=== PATIENT | female | born 1940 | race Caucasian/White ===

== ENCOUNTER 2017-10-12 22:03 | Inpatient (IN) ==
[2017-10-12] MEDS ORDERED: ASPIRIN 300 MG SUPP RECTAL STA (23:53)
[2017-10-12] MEDS ORDERED: cefTRIAXone 1,000 MG in SODIUM CHLORIDE 0.9% 100 ML IV STA (23:53)
[2017-10-12] MEDS ORDERED: ENOXAPARIN 100 MG/ML SYRINGE SUBCUT STA (23:53)
[2017-10-12] MEDS ORDERED: cefTRIAXone 1,000 MG VIAL ONE (23:58)
[2017-10-12] MEDS ORDERED: ASPIRIN 300 MG SUPP RECTAL ONE (23:59)
[2017-10-12] MEDS ORDERED: ENOXAPARIN 30 MG/0.3 ML SYRINGE ONE (23:59)
[2017-10-13] MEDS ORDERED: ACETAMINOPHEN 325 MG TABLET PO PRN (01:17)
[2017-10-13] MEDS ORDERED: ONDANSETRON 4 MG/2 ML VIAL IV PRN (01:17)
[2017-10-13] MEDS ORDERED: NITROGLYCERIN DRIP 50 MG/250 ML BOTTLE IV SCH (01:30)
[2017-10-13] MEDS ORDERED: HEPARIN DRIP 25,000 UNITS/500 ML PREMIX IV SCH (01:30)
[2017-10-13] MEDS ORDERED: cefTRIAXone 1,000 MG VIAL ONE (01:40)
[2017-10-13] MEDS ORDERED: AZITHROMYCIN 500 MG VIAL IV ONE (01:40)
[2017-10-13] MEDS: METOPROLOL TARTRATE 25 MG TABLET PO SCH ×4 (01:57→21:55)
[2017-10-13] MEDS ORDERED: AZITHROMYCIN INJ 500 MG in SODIUM CHLORIDE 0.9% 250 ML IV SCH (03:00)
[2017-10-13 05:43] LABS: Basophils # 0.1 10*3/uL (0.0-0.2); Basophils % 0.7 % (0.0-0.8); Eosinophils % 0.2 % (0.00-10.9); Hematocrit 35.9 VOL% (35.7-47.0); Hemoglobin 11.6 GM/DL (12.0-16.0); Immature Granulocytes % 0.5 %; Immature Granulocytes Absolute 0.04 #; Lymphocytes # 1.7 10*3/uL (1.4-4.0); Lymphocytes % 19.2 % (21.3-54.2); Mean Corpuscular HGB Conc 32.3 GM/DL (32-36); Mean Corpuscular Hemoglobin 29 PG (27-34); Mean Corpuscular Volume 89.5 FL (87-102); Mean Platelet Volume 10.9 FL (9.6-12.0); Monocytes # 0.4 10*3/uL (0.11-0.8); Monocytes % 4.8 % (1.7-12.7); Neutrophils # 6.6 10*3/uL (1.4-7.4); Neutrophils % 74.6 % (38.7-73.9); Platelet Count 322 T/CUMM (130-400); Red Blood Count 4.01 MC/CUMM (3.8-5.5); Red Cell Distribution Width 12.7 % (9.3-17.3); White Blood Count 8.8 T/CUMM (4-12)
[2017-10-13 06:35] LABS: Alanine Aminotransferase 13 U/L (13-56); Albumin 1.9 G/DL (3.4-5.0); Alkaline Phosphatase 86 U/L (45-117); Aspartate Amino Transferase 33 U/L (0-37); Bilirubin,Total < 0.39 MG/DL (0.2-1.0); Blood Urea Nitrogen 25 MG/DL (7-18); Calcium 8.1 MG/DL (8.5-10.1); Glucose 73 MG/DL (74-106); Osmolality,Calculated 275.8 MOS/KG (273-304); Potassium 3.2 MMOL/L (3.5-5.1); Sodium 137 MMOL/L (136-145); Total Protein 5.6 G/DL (6.4-8.3)
[2017-10-13] MEDS ORDERED: NIFEdipine 10 MG CAPSULE PO PRN (07:59)
[2017-10-13] MEDS: PANTOPRAZOLE 40 MG TABLET PO SCH (08:29)
[2017-10-13] MEDS: ASPIRIN EC 81 MG TABLET PO SCH (08:29)
[2017-10-13] MEDS: POTASSIUM CHLORIDE 20 MEQ TABLET PO SCH ×3 (08:29→18:30)
[2017-10-13] MEDS ORDERED: LISINOPRIL 10 MG TABLET PO SCH (09:00)
[2017-10-13] MEDS: CIPROFLOXACIN 250 MG TABLET PO SCH ×2 (14:05→21:53)
[2017-10-14] MEDS: cefTRIAXone 1,000 MG in SYRINGE 1 EACH IV SCH ×2 (02:03→14:34)
[2017-10-14 04:37] LABS: Basophils # 0.1 10*3/uL (0.0-0.2); Basophils % 0.5 % (0.0-0.8); Eosinophils % 0.3 % (0.00-10.9); Hematocrit 37.3 VOL% (35.7-47.0); Hemoglobin 12.5 GM/DL (12.0-16.0); Immature Granulocytes % 0.4 %; Immature Granulocytes Absolute 0.05 #; Lymphocytes # 1.9 10*3/uL (1.4-4.0); Lymphocytes % 16.4 % (21.3-54.2); Mean Corpuscular HGB Conc 33.5 GM/DL (32-36); Mean Corpuscular Hemoglobin 30 PG (27-34); Mean Corpuscular Volume 88.6 FL (87-102); Mean Platelet Volume 11.2 FL (9.6-12.0); Monocytes # 0.7 10*3/uL (0.11-0.8); Monocytes % 5.8 % (1.7-12.7); Neutrophils # 8.9 10*3/uL (1.4-7.4); Neutrophils % 76.6 % (38.7-73.9); Platelet Count 326 T/CUMM (130-400); Red Blood Count 4.21 MC/CUMM (3.8-5.5); Red Cell Distribution Width 13.2 % (9.3-17.3); White Blood Count 11.6 T/CUMM (4-12)
[2017-10-14 05:11] LABS: Calcium 8.3 MG/DL (8.5-10.1); Magnesium 2.2 MG/DL (1.8-2.4); Osmolality,Calculated 287.5 MOS/KG (273-304); Potassium 4.8 MMOL/L (3.5-5.1)
[2017-10-14] MEDS: ASPIRIN EC 81 MG TABLET PO SCH (10:25)
[2017-10-14] MEDS: CIPROFLOXACIN 250 MG TABLET PO SCH ×2 (10:25→20:41)
[2017-10-14] MEDS: METOPROLOL TARTRATE 25 MG TABLET PO SCH ×2 (10:26→20:41)
[2017-10-14] MEDS: PANTOPRAZOLE 40 MG TABLET PO SCH (10:26)
[2017-10-14] MEDS: LISINOPRIL 2.5 MG TABLET PO SCH (10:28)
[2017-10-14] MEDS: SODIUM CHLORIDE 0.9% 1,000 ML IV SCH (16:36)
[2017-10-15] MEDS: cefTRIAXone 1,000 MG in SYRINGE 1 EACH IV SCH ×2 (02:58→13:39)
[2017-10-15 07:25] LABS: Osmolality,Calculated 294.1 MOS/KG (273-304); Potassium 4.6 MMOL/L (3.5-5.1)
[2017-10-15] MEDS: METOPROLOL TARTRATE 25 MG TABLET PO SCH ×2 (08:15→20:32)
[2017-10-15] MEDS: LISINOPRIL 2.5 MG TABLET PO SCH (08:15)
[2017-10-15] MEDS: ASPIRIN EC 81 MG TABLET PO SCH (08:15)
[2017-10-15] MEDS: PANTOPRAZOLE 40 MG TABLET PO SCH (08:15)
[2017-10-15] MEDS: CIPROFLOXACIN 250 MG TABLET PO SCH ×2 (08:15→20:32)
[2017-10-15] MEDS: SODIUM CHLORIDE 0.9% 1,000 ML IV SCH ×3 (12:15→16:11)
[2017-10-15] MEDS ORDERED: ZINC OXIDE PASTE 113 GM TUBE TOP PRN (16:12)
[2017-10-16] MEDS: cefTRIAXone 1,000 MG in SYRINGE 1 EACH IV SCH ×2 (02:06→13:05)
[2017-10-16] MEDS: SODIUM CHLORIDE 0.9% 1,000 ML IV SCH ×2 (05:16→18:50)
[2017-10-16 05:34] LABS: Basophils # 0.1 10*3/uL (0.0-0.2); Basophils % 0.7 % (0.0-0.8); Eosinophils # 0.1 10*3/uL (0.0-0.87); Eosinophils % 1.1 % (0.00-10.9); Hematocrit 35.7 VOL% (35.7-47.0); Hemoglobin 11.3 GM/DL (12.0-16.0); Immature Granulocytes % 0.8 %; Immature Granulocytes Absolute 0.08 #; Lymphocytes # 1.7 10*3/uL (1.4-4.0); Mean Corpuscular HGB Conc 31.7 GM/DL (32-36); Mean Corpuscular Hemoglobin 30 PG (27-34); Mean Corpuscular Volume 93.9 FL (87-102); Mean Platelet Volume 11.4 FL (9.6-12.0); Monocytes # 0.7 10*3/uL (0.11-0.8); Monocytes % 7.3 % (1.7-12.7); Neutrophils # 7.2 10*3/uL (1.4-7.4); Neutrophils % 73.1 % (38.7-73.9); Platelet Count 287 T/CUMM (130-400); Red Cell Distribution Width 13.6 % (9.3-17.3); White Blood Count 9.9 T/CUMM (4-12)
[2017-10-16 06:05] LABS: Calcium 7.8 MG/DL (8.5-10.1); Potassium 4.4 MMOL/L (3.5-5.1)
[2017-10-16] MEDS: LEVOTHYROXINE 50 MCG TABLET PO SCH (06:53)
[2017-10-16] MEDS ORDERED: TUBERCULIN SKIN TEST 0.1 ML SYRINGE INTRADERM ONE (08:27)
[2017-10-16] MEDS: LISINOPRIL 2.5 MG TABLET PO SCH (08:47)
[2017-10-16] MEDS: ASPIRIN EC 81 MG TABLET PO SCH (08:47)
[2017-10-16] MEDS: PANTOPRAZOLE 40 MG TABLET PO SCH (08:47)
[2017-10-16] MEDS: CIPROFLOXACIN 250 MG TABLET PO SCH ×2 (08:47→20:41)
[2017-10-16] MEDS: METOPROLOL TARTRATE 25 MG TABLET PO SCH ×2 (08:47→20:41)
[2017-10-16] MEDS: MEGESTROL 40 MG TABLET PO SCH (20:40)
[2017-10-17] MEDS: cefTRIAXone 1,000 MG in SYRINGE 1 EACH IV SCH ×2 (00:53→12:41)
[2017-10-17] MEDS: LEVOTHYROXINE 50 MCG TABLET PO SCH (05:48)
[2017-10-17] MEDS: ASPIRIN EC 81 MG TABLET PO SCH (08:05)
[2017-10-17] MEDS: MEGESTROL 40 MG TABLET PO SCH (08:05)
[2017-10-17] MEDS: METOPROLOL TARTRATE 25 MG TABLET PO SCH (08:05)
[2017-10-17] MEDS: LISINOPRIL 2.5 MG TABLET PO SCH (08:05)
[2017-10-17] MEDS: PANTOPRAZOLE 40 MG TABLET PO SCH (08:05)
[2017-10-17] MEDS: CIPROFLOXACIN 250 MG TABLET PO SCH (08:06)
[2017-10-17] MEDS: SODIUM CHLORIDE 0.9% 1,000 ML IV SCH (08:08)
[2017-10-17 12:13] VITALS: BP 133/63
== END 2017-10-17 13:39 | disposition swing bed (61) | DRG 193 ==
LOC: N.ED 22:03 → SUATTDRO 10-13 01:17 → N.EDINP 10-13 01:17 → N.CC 10-13 01:41 → N.TELEN 10-13 11:38 → N.5E 10-14 23:16
PROVIDERS: ADMIT Internal Medicine; ATTEND Internal Medicine

== ENCOUNTER 2017-10-31 09:09 | Inpatient (IN) ==
[2017-10-31] MEDS ORDERED: ALBUTEROL/IPRATROPIUM 3 ML NEB RESP TX STA (10:05)
[2017-10-31 10:47] LABS: Basophils % 0.5 % (0.0-0.8); Hematocrit 34.7 VOL% (35.7-47.0); Hemoglobin 11.5 GM/DL (12.0-16.0); Immature Granulocytes % 0.8 %; Immature Granulocytes Absolute 0.06 #; Lymphocytes # 0.4 10*3/uL (1.4-4.0); Lymphocytes % 4.5 % (21.3-54.2); Mean Corpuscular HGB Conc 33.1 GM/DL (32-36); Mean Corpuscular Hemoglobin 30 PG (27-34); Mean Corpuscular Volume 89.7 FL (87-102); Mean Platelet Volume 10.4 FL (9.6-12.0); Monocytes % 0.5 % (1.7-12.7); Neutrophils # 7.5 10*3/uL (1.4-7.4); Neutrophils % 93.7 % (38.7-73.9); Platelet Count 468 T/CUMM (130-400); Red Blood Count 3.87 MC/CUMM (3.8-5.5); Red Cell Distribution Width 13.9 % (9.3-17.3)
[2017-10-31 10:57] LABS: Alanine Aminotransferase 105 U/L (13-56); Albumin 2.1 G/DL (3.4-5.0); Alkaline Phosphatase 76 U/L (45-117); Aspartate Amino Transferase 63 U/L (0-37); Bilirubin,Total < 0.39 MG/DL (0.2-1.0); Blood Urea Nitrogen 26 MG/DL (7-18); Calcium 8.6 MG/DL (8.5-10.1); Glucose 111 MG/DL (74-106); Osmolality,Calculated 291.8 MOS/KG (273-304); Potassium 4.1 MMOL/L (3.5-5.1); Sodium 144 MMOL/L (136-145); Total Protein 6.2 G/DL (6.4-8.3)
[2017-10-31 11:09] LABS: Band Neutrophils 1 % (0-10); Hypochromasia 1+; Lymphocytes 3 % (20-55); Microcytosis Slight; Segmented Neutrophils 95 % (50-85); Total Cells Counted 100
[2017-10-31 11:10] LABS: Platelet Estimate Increased
[2017-10-31] MEDS ORDERED: LEVOFLOXACIN INJ 750 MG in PREMIX 1 EACH IV SCH (13:30)
[2017-10-31 13:31] LABS: PT Patient Result 10.2 SECS
[2017-10-31] MEDS ORDERED: LEVOFLOXACIN INJ 150 ML IV ONE (13:57)
[2017-10-31] MEDS ORDERED: ACETAMINOPHEN 325 MG TABLET PO PRN (14:10)
[2017-10-31] MEDS ORDERED: ONDANSETRON 4 MG/2 ML VIAL IV PRN (14:10)
[2017-10-31] MEDS ORDERED: NICOTINE 21 MG/24 HR PATCH TRANSDERM PRN (14:10)
[2017-10-31] MEDS: FUROSEMIDE 20 MG/2 ML VIAL IV SCH ×2 (15:14→20:42)
[2017-10-31] MEDS: ENOXAPARIN 30 MG/0.3 ML SYRINGE SUBCUT SCH (15:14)
[2017-10-31] MEDS: methylPREDNISolone SOD SUC 40 MG/1 ML VIAL IV SCH (15:15)
[2017-10-31 15:44] LABS: ABG Base Excess 6.3 MMOL/L (-2.5-2.5); ABG Oxygen Saturation 95.1 % (95-100); ABG PCO2 39.8 MM HG (35-48); ABG PH 7.487 (7.35-7.45); ABG PO2 70.2 MM HG (80-95); ABG TCO2 27.1 MMOL/L (23-27); Allen Test Positive
[2017-10-31 15:47] LABS: Apearance,Urine CLEAR (Clear); Bilirubin,Urine Negative (Negative); Blood, Urine Negative (Negative); Glucose,Urine (UA) Negative (Negative); Ketones,Urine 5 mg/dL (Negative); Nitrite,Urine Negative (Negative); Protein,Urine >=500 MG/DL; RBC,Urine <1 /HPF (0-4); Squamous Epithelial Cell,Urine Occasional /HPF (0-10); Urine Color Yellow (Yellow); Urine Specific Gravity 1.018 (1.001-1.035); Urine Urobilinogen < 2.0 EU/DL (0.2-1.0); WBC,Urine 2 /HPF (0-6)
[2017-10-31] MEDS ORDERED: diphenhydrAMINE 50 MG/1 ML VIAL ONE (15:52)
[2017-10-31] MEDS ORDERED: diphenhydrAMINE 50 MG/1 ML VIAL IV ONE (15:57)
[2017-10-31] MEDS ORDERED: diphenhydrAMINE 50 MG/1 ML VIAL IV SCH (18:00)
[2017-10-31] MEDS ORDERED: ALBUTEROL 0.63 MG/3 ML NEB RESP TX PRN (19:00)
[2017-10-31] MEDS: MEROPENEM 500 MG in SODIUM CHLORIDE 0.9% 100 ML IV SCH (20:42)
[2017-10-31 21:05] LABS: Ammonia < 10 UMOL/L (11-32)
[2017-10-31 21:10] LABS: Troponin I Only 0.182 NG/ML (0.00-0.045)
[2017-10-31 21:52] LABS: Hepatitis A Ab IgM Quant 0.18 Index; Hepatitis A Ab IgM Result Negative (Negative); Hepatitis B Core IgM Quant 0.16 Index; Hepatitis B Core IgM Result Negative (Negative); Hepatitis B Surface Ag Quant < 0.10 Index; Hepatitis B Surface Ag Result Negative (Negative); Hepatitis C Virus Ab Quant 0.13 Index; Hepatitis C Virus Ab Result Negative (Negative)
[2017-11-01] MEDS: methylPREDNISolone SOD SUC 40 MG/1 ML VIAL IV SCH ×2 (02:59→14:53)
[2017-11-01 05:33] LABS: Basophils % 0.1 % (0.0-0.8); Hematocrit 33.1 VOL% (35.7-47.0); Hemoglobin 10.6 GM/DL (12.0-16.0); Immature Granulocytes % 0.5 %; Immature Granulocytes Absolute 0.04 #; Lymphocytes # 0.7 10*3/uL (1.4-4.0); Lymphocytes % 9.2 % (21.3-54.2); Mean Corpuscular Hemoglobin 29 PG (27-34); Mean Corpuscular Volume 89.9 FL (87-102); Mean Platelet Volume 10.7 FL (9.6-12.0); Monocytes # 0.4 10*3/uL (0.11-0.8); Monocytes % 5.2 % (1.7-12.7); Neutrophils # 6.8 10*3/uL (1.4-7.4); Platelet Count 475 T/CUMM (130-400); Red Blood Count 3.68 MC/CUMM (3.8-5.5); White Blood Count 7.9 T/CUMM (4-12)
[2017-11-01 06:10] LABS: Alanine Aminotransferase 96 U/L (13-56); Albumin 2.2 G/DL (3.4-5.0); Alkaline Phosphatase 71 U/L (45-117); Aspartate Amino Transferase 44 U/L (0-37); Bilirubin,Total < 0.39 MG/DL (0.2-1.0); Blood Urea Nitrogen 29 MG/DL (7-18); Calcium 8.6 MG/DL (8.5-10.1); Glucose 100 MG/DL (74-106); Osmolality,Calculated 288.1 MOS/KG (273-304); Potassium 4.5 MMOL/L (3.5-5.1); Sodium 142 MMOL/L (136-145)
[2017-11-01 06:13] LABS: Calcium 8.9 MG/DL (8.5-10.1); Osmolality,Calculated 288.1 MOS/KG (273-304); Potassium 4.5 MMOL/L (3.5-5.1); Thyroid Stimulating Hormone 2.26 uIU/ml (0.358-3.74)
[2017-11-01] MEDS: PANTOPRAZOLE 40 MG TABLET PO SCH (07:59)
[2017-11-01] MEDS: MEROPENEM 500 MG in SODIUM CHLORIDE 0.9% 100 ML IV SCH ×2 (07:59→20:39)
[2017-11-01] MEDS: FUROSEMIDE 20 MG/2 ML VIAL IV SCH (07:59)
[2017-11-01] MEDS ORDERED: FUROSEMIDE 20 MG TABLET PO SCH (14:00)
[2017-11-01] MEDS: ALBUTEROL/IPRATROPIUM 3 ML NEB RESP TX SCH ×2 (14:39→23:50)
[2017-11-01] MEDS: ENOXAPARIN 30 MG/0.3 ML SYRINGE SUBCUT SCH (14:51)
[2017-11-01] MEDS ORDERED: NIFEdipine 10 MG CAPSULE PO PRN (16:46)
[2017-11-01] MEDS: MEGESTROL 40 MG TABLET PO SCH (20:37)
[2017-11-01] MEDS: METOPROLOL TARTRATE 25 MG TABLET PO SCH (20:38)
[2017-11-02] MEDS: methylPREDNISolone SOD SUC 40 MG/1 ML VIAL IV SCH ×2 (03:30→16:47)
[2017-11-02 06:54] LABS: Basophils % 0.1 % (0.0-0.8); Hematocrit 36.2 VOL% (35.7-47.0); Hemoglobin 11.5 GM/DL (12.0-16.0); Immature Granulocytes % 0.6 %; Immature Granulocytes Absolute 0.05 #; Lymphocytes # 0.6 10*3/uL (1.4-4.0); Lymphocytes % 6.5 % (21.3-54.2); Mean Corpuscular HGB Conc 31.8 GM/DL (32-36); Mean Corpuscular Hemoglobin 29 PG (27-34); Mean Corpuscular Volume 91.2 FL (87-102); Mean Platelet Volume 10.1 FL (9.6-12.0); Monocytes # 0.2 10*3/uL (0.11-0.8); Monocytes % 2.3 % (1.7-12.7); Neutrophils # 7.8 10*3/uL (1.4-7.4); Neutrophils % 90.5 % (38.7-73.9); Platelet Count 488 T/CUMM (130-400); Red Blood Count 3.97 MC/CUMM (3.8-5.5); White Blood Count 8.6 T/CUMM (4-12)
[2017-11-02 07:29] LABS: Albumin 2.4 G/DL (3.4-5.0); Bilirubin,Total 0.5 MG/DL (0.2-1.0); Calcium 8.8 MG/DL (8.5-10.1); Osmolality,Calculated 287.3 MOS/KG (273-304); Potassium 3.9 MMOL/L (3.5-5.1); Total Protein 6.3 G/DL (6.4-8.3)
[2017-11-02] MEDS: ALBUTEROL/IPRATROPIUM 3 ML NEB RESP TX SCH ×2 (07:57→15:30)
[2017-11-02] MEDS ORDERED: NON-FORMULARY MEDICATION (Omeprazole [Omeprazole] 40 MG) PO SCH (09:00)
[2017-11-02] MEDS: MULTIVITAMIN (CENTRUM) TABLET PO SCH (09:21)
[2017-11-02] MEDS: ASPIRIN EC 81 MG TABLET PO SCH (09:21)
[2017-11-02] MEDS: PANTOPRAZOLE 40 MG TABLET PO SCH (09:21)
[2017-11-02] MEDS: FUROSEMIDE 40 MG/4 ML VIAL IV SCH (09:21)
[2017-11-02] MEDS: METOPROLOL TARTRATE 25 MG TABLET PO SCH ×2 (09:21→21:24)
[2017-11-02] MEDS: MEGESTROL 40 MG TABLET PO SCH ×2 (09:21→21:24)
[2017-11-02] MEDS: LISINOPRIL 2.5 MG TABLET PO SCH (09:21)
[2017-11-02] MEDS: LEVOTHYROXINE 50 MCG TABLET PO SCH (09:22)
[2017-11-02] MEDS: MEROPENEM 500 MG in SODIUM CHLORIDE 0.9% 100 ML IV SCH ×2 (09:22→21:24)
[2017-11-02] MEDS: ENOXAPARIN 30 MG/0.3 ML SYRINGE SUBCUT SCH (16:48)
[2017-11-03] MEDS: ALBUTEROL/IPRATROPIUM 3 ML NEB RESP TX SCH ×4 (00:23→23:58)
[2017-11-03] MEDS: methylPREDNISolone SOD SUC 40 MG/1 ML VIAL IV SCH ×2 (03:21→14:55)
[2017-11-03 06:12] LABS: Basophils % 0.1 % (0.0-0.8); Hematocrit 36.9 VOL% (35.7-47.0); Hemoglobin 11.9 GM/DL (12.0-16.0); Immature Granulocytes % 0.8 %; Immature Granulocytes Absolute 0.06 #; Lymphocytes # 0.6 10*3/uL (1.4-4.0); Lymphocytes % 7.7 % (21.3-54.2); Mean Corpuscular HGB Conc 32.2 GM/DL (32-36); Mean Corpuscular Hemoglobin 29 PG (27-34); Mean Corpuscular Volume 88.9 FL (87-102); Mean Platelet Volume 10.3 FL (9.6-12.0); Monocytes # 0.3 10*3/uL (0.11-0.8); Monocytes % 3.3 % (1.7-12.7); Neutrophils # 6.7 10*3/uL (1.4-7.4); Neutrophils % 88.1 % (38.7-73.9); Platelet Count 489 T/CUMM (130-400); Red Blood Count 4.15 MC/CUMM (3.8-5.5); Red Cell Distribution Width 14.3 % (9.3-17.3); White Blood Count 7.6 T/CUMM (4-12)
[2017-11-03] MEDS: LEVOTHYROXINE 50 MCG TABLET PO SCH (06:20)
[2017-11-03 06:55] LABS: Calcium 8.5 MG/DL (8.5-10.1); Osmolality,Calculated 287.4 MOS/KG (273-304); Potassium 3.9 MMOL/L (3.5-5.1)
[2017-11-03] MEDS: FUROSEMIDE 40 MG/4 ML VIAL IV SCH (09:43)
[2017-11-03] MEDS: ASPIRIN EC 81 MG TABLET PO SCH (09:44)
[2017-11-03] MEDS: MULTIVITAMIN (CENTRUM) TABLET PO SCH (09:44)
[2017-11-03] MEDS: MEROPENEM 500 MG in SODIUM CHLORIDE 0.9% 100 ML IV SCH ×2 (09:44→22:19)
[2017-11-03] MEDS: METOPROLOL TARTRATE 25 MG TABLET PO SCH ×2 (09:44→22:18)
[2017-11-03] MEDS: PANTOPRAZOLE 40 MG TABLET PO SCH (09:44)
[2017-11-03] MEDS: LISINOPRIL 2.5 MG TABLET PO SCH (09:44)
[2017-11-03] MEDS: MEGESTROL 40 MG TABLET PO SCH ×2 (09:44→22:18)
[2017-11-03] MEDS: ENOXAPARIN 30 MG/0.3 ML SYRINGE SUBCUT SCH (14:55)
[2017-11-04] MEDS: methylPREDNISolone SOD SUC 40 MG/1 ML VIAL IV SCH ×2 (04:10→14:00)
[2017-11-04] MEDS: LEVOTHYROXINE 50 MCG TABLET PO SCH (06:40)
[2017-11-04] MEDS: ALBUTEROL/IPRATROPIUM 3 ML NEB RESP TX SCH ×2 (08:06→15:30)
[2017-11-04] MEDS: MEGESTROL 40 MG TABLET PO SCH ×2 (08:39→21:28)
[2017-11-04] MEDS: MULTIVITAMIN (CENTRUM) TABLET PO SCH (08:39)
[2017-11-04] MEDS: ASPIRIN EC 81 MG TABLET PO SCH (08:39)
[2017-11-04] MEDS: MEROPENEM 500 MG in SODIUM CHLORIDE 0.9% 100 ML IV SCH ×2 (08:39→21:29)
[2017-11-04] MEDS: METOPROLOL TARTRATE 25 MG TABLET PO SCH ×2 (08:39→21:29)
[2017-11-04] MEDS: FUROSEMIDE 40 MG/4 ML VIAL IV SCH (08:39)
[2017-11-04] MEDS: LISINOPRIL 2.5 MG TABLET PO SCH (08:39)
[2017-11-04] MEDS: PANTOPRAZOLE 40 MG TABLET PO SCH (08:39)
[2017-11-04] MEDS: ENOXAPARIN 30 MG/0.3 ML SYRINGE SUBCUT SCH (14:00)
[2017-11-05] MEDS: ALBUTEROL/IPRATROPIUM 3 ML NEB RESP TX SCH ×4 (00:38→22:52)
[2017-11-05] MEDS: methylPREDNISolone SOD SUC 40 MG/1 ML VIAL IV SCH ×2 (03:48→15:51)
[2017-11-05] MEDS: LEVOTHYROXINE 50 MCG TABLET PO SCH (05:38)
[2017-11-05] MEDS: FUROSEMIDE 40 MG/4 ML VIAL IV SCH (10:25)
[2017-11-05] MEDS: MEGESTROL 40 MG TABLET PO SCH ×2 (10:25→22:01)
[2017-11-05] MEDS: LISINOPRIL 2.5 MG TABLET PO SCH (10:26)
[2017-11-05] MEDS: ASPIRIN EC 81 MG TABLET PO SCH (10:26)
[2017-11-05] MEDS: METOPROLOL TARTRATE 25 MG TABLET PO SCH ×2 (10:26→22:01)
[2017-11-05] MEDS: PANTOPRAZOLE 40 MG TABLET PO SCH (10:26)
[2017-11-05] MEDS: MULTIVITAMIN (CENTRUM) TABLET PO SCH (10:26)
[2017-11-05] MEDS: MEROPENEM 500 MG in SODIUM CHLORIDE 0.9% 100 ML IV SCH ×2 (10:30→22:02)
[2017-11-05] MEDS: ENOXAPARIN 30 MG/0.3 ML SYRINGE SUBCUT SCH (15:41)
[2017-11-05] MEDS: AZITHROMYCIN 250 MG TABLET PO SCH (16:00)
[2017-11-06] MEDS: LEVOTHYROXINE 50 MCG TABLET PO SCH (06:07)
[2017-11-06] MEDS: ALBUTEROL/IPRATROPIUM 3 ML NEB RESP TX SCH (07:25)
[2017-11-06 07:47] VITALS: BP 137/75
[2017-11-06] MEDS: FUROSEMIDE 40 MG/4 ML VIAL IV SCH (08:19)
[2017-11-06] MEDS: PANTOPRAZOLE 40 MG TABLET PO SCH (08:20)
[2017-11-06] MEDS: ASPIRIN EC 81 MG TABLET PO SCH (08:20)
[2017-11-06] MEDS: AZITHROMYCIN 250 MG TABLET PO SCH (08:20)
[2017-11-06] MEDS: LISINOPRIL 2.5 MG TABLET PO SCH (08:20)
[2017-11-06] MEDS: MEROPENEM 500 MG in SODIUM CHLORIDE 0.9% 100 ML IV SCH (08:20)
[2017-11-06] MEDS: METOPROLOL TARTRATE 25 MG TABLET PO SCH (08:21)
[2017-11-06] MEDS: MULTIVITAMIN (CENTRUM) TABLET PO SCH (08:21)
[2017-11-06] MEDS: MEGESTROL 40 MG TABLET PO SCH (08:21)
[2017-11-06] MEDS ORDERED: predniSONE 20 MG TABLET PO SCH (09:00)
[2017-11-07 13:01] LABS: QuantiFERON-Tb Gold Pl Negative (Negative); TB1 Ag minus Nil Result 0 IU/mL; TB2 Ag Minus Result 0 IU/mL
== END 2017-11-06 11:56 | DRG 291 ==
LOC: N.ED 09:09 → N.EDINP 10:35 → SUATTDRO 10:35 → N.5E 14:13
PROVIDERS: ADMIT Internal Medicine; ATTEND Family Medicine

== ENCOUNTER 2018-02-01 16:05 | Inpatient (IN) ==
[2018-02-01] MEDS ORDERED: ALBUTEROL 2.5 MG/3 ML NEB RESP TX PRN (18:02)
[2018-02-01] MEDS ORDERED: ONDANSETRON 4 MG/2 ML VIAL IV PRN (18:02)
[2018-02-01] MEDS ORDERED: NICOTINE 21 MG/24 HR PATCH TRANSDERM PRN (18:02)
[2018-02-01 20:34] LABS: ABG Base Excess 7.6 MMOL/L (-2.5-2.5); ABG HCO3 31.3 MMOL/L (20-26); ABG Oxygen Saturation 93.9 % (95-100); ABG PO2 74.8 MM HG (80-95); ABG TCO2 30.6 MMOL/L (23-27)
[2018-02-01] MEDS: methylPREDNISolone SOD SUC 40 MG/1 ML VIAL IV SCH (20:45)
[2018-02-01] MEDS: FUROSEMIDE 40 MG/4 ML VIAL IV SCH (20:50)
[2018-02-01] MEDS: DOCUSATE SODIUM 100 MG CAPSULE PO SCH (20:57)
[2018-02-01] MEDS: PANTOPRAZOLE 40 MG VIAL IV SCH (20:57)
[2018-02-01] MEDS: METOPROLOL TARTRATE 5 MG/5 ML VIAL IV PRN (20:58)
[2018-02-01] MEDS: DOXYCYCLINE HYCLATE INJ 100 MG in SODIUM CHLORIDE 0.9% 100 ML IV SCH (20:58)
[2018-02-01] MEDS: ENOXAPARIN 40 MG/0.4 ML SYRINGE SUBCUT SCH (22:50)
[2018-02-01] MEDS: METOPROLOL TARTRATE 25 MG TABLET PO SCH (22:55)
[2018-02-02] MEDS: ALBUTEROL/IPRATROPIUM 3 ML NEB RESP TX SCH ×4 (01:20→20:03)
[2018-02-02 05:21] LABS: Apearance,Urine CLEAR (Clear); Bilirubin,Urine Negative (Negative); Blood, Urine Negative (Negative); Glucose,Urine (UA) Negative (Negative); Hyaline Casts,Urine 6 /LPF (0-3); Ketones,Urine Negative (Negative); Mucus,Urine Occasional /LPF (Occasional); Nitrite,Urine Negative (Negative); Protein,Urine 30 MG/DL; Urine Color Straw (Yellow); Urine Specific Gravity 1.012 (1.001-1.035); Urine Urobilinogen < 2.0 EU/DL (0.2-1.0); WBC,Urine <1 /HPF (0-6)
[2018-02-02 05:30] LABS: Basophils % 0.3 % (0.0-0.8); Hematocrit 34.7 VOL% (35.7-47.0); Hemoglobin 10.4 GM/DL (12.0-16.0); Immature Granulocytes % 1.7 %; Lymphocytes # 0.6 10*3/uL (1.4-4.0); Lymphocytes % 9.5 % (21.3-54.2); Mean Corpuscular Hemoglobin 27 PG (27-34); Mean Corpuscular Volume 90.8 FL (87-102); Mean Platelet Volume 10.1 FL (9.6-12.0); Monocytes # 0.1 10*3/uL (0.11-0.8); Monocytes % 1.7 % (1.7-12.7); NRBC # 0.03 10*3/uL; Neutrophils % 86.8 % (38.7-73.9); Platelet Count 510 T/CUMM (130-400); Red Blood Count 3.82 MC/CUMM (3.8-5.5); Red Cell Distribution Width 16.4 % (9.3-17.3); White Blood Count 5.8 T/CUMM (4-12)
[2018-02-02 06:07] LABS: Albumin 2.2 G/DL (3.4-5.0); Bilirubin,Total 1.1 MG/DL (0.2-1.0); Calcium 8.6 MG/DL (8.5-10.1); Potassium 2.7 MMOL/L (3.5-5.1); Total Protein 6.9 G/DL (6.4-8.3)
[2018-02-02] MEDS: methylPREDNISolone SOD SUC 40 MG/1 ML VIAL IV SCH ×3 (06:37→21:31)
[2018-02-02] MEDS: LEVOTHYROXINE 100 MCG VIAL IV SCH (06:37)
[2018-02-02] MEDS: FUROSEMIDE 40 MG/4 ML VIAL IV SCH ×2 (08:12→15:00)
[2018-02-02] MEDS: ASPIRIN EC 81 MG TABLET PO SCH ×2 (08:27→08:52)
[2018-02-02] MEDS: POTASSIUM CHLORIDE 20 MEQ TABLET PO ONE ×2 (08:27→09:32)
[2018-02-02] MEDS: DOCUSATE SODIUM 100 MG CAPSULE PO SCH ×2 (08:27→21:27)
[2018-02-02] MEDS: LISINOPRIL 2.5 MG TABLET PO SCH (08:27)
[2018-02-02] MEDS: METOPROLOL TARTRATE 25 MG TABLET PO SCH ×2 (08:27→21:27)
[2018-02-02] MEDS: DOXYCYCLINE HYCLATE INJ 100 MG in SODIUM CHLORIDE 0.9% 100 ML IV SCH ×2 (08:52→21:34)
[2018-02-02] MEDS ORDERED: POTASSIUM CHLORIDE 20 MEQ/15 ML UDCUP PER TUBE ONE (09:00)
[2018-02-02] MEDS: METOPROLOL TARTRATE 5 MG/5 ML VIAL IV PRN (17:30)
[2018-02-02] MEDS: ACETAMINOPHEN 325 MG/10.15 ML UDCUP PO PRN (18:23)
[2018-02-02] MEDS: ENOXAPARIN 40 MG/0.4 ML SYRINGE SUBCUT SCH (21:27)
[2018-02-02] MEDS: PANTOPRAZOLE 40 MG VIAL IV SCH (21:28)
[2018-02-03] MEDS: ALBUTEROL/IPRATROPIUM 3 ML NEB RESP TX SCH ×4 (00:38→20:15)
[2018-02-03] MEDS: LEVOTHYROXINE 100 MCG VIAL IV SCH (03:08)
[2018-02-03 06:01] LABS: Troponin I Only 0.085 NG/ML (0.00-0.045)
[2018-02-03] MEDS: LEVOTHYROXINE 50 MCG TABLET PO SCH (06:07)
[2018-02-03] MEDS: methylPREDNISolone SOD SUC 40 MG/1 ML VIAL IV SCH ×3 (06:07→21:11)
[2018-02-03 06:10] LABS: Basophils % 0.2 % (0.0-0.8); Hematocrit 39.5 VOL% (35.7-47.0); Hemoglobin 11.7 GM/DL (12.0-16.0); Immature Granulocytes % 1.1 %; Immature Granulocytes Absolute 0.06 #; Lymphocytes # 0.8 10*3/uL (1.4-4.0); Lymphocytes % 14.9 % (21.3-54.2); Mean Corpuscular HGB Conc 29.6 GM/DL (32-36); Mean Corpuscular Hemoglobin 27 PG (27-34); Mean Corpuscular Volume 92.3 FL (87-102); Mean Platelet Volume 10.4 FL (9.6-12.0); Monocytes # 0.2 10*3/uL (0.11-0.8); Monocytes % 3.4 % (1.7-12.7); NRBC # 0.02 10*3/uL; Neutrophils # 4.3 10*3/uL (1.4-7.4); Neutrophils % 80.4 % (38.7-73.9); Platelet Count 496 T/CUMM (130-400); Red Blood Count 4.28 MC/CUMM (3.8-5.5); Red Cell Distribution Width 16.5 % (9.3-17.3); White Blood Count 5.3 T/CUMM (4-12)
[2018-02-03 06:17] LABS: Calcium 8.7 MG/DL (8.5-10.1); Osmolality,Calculated 299.4 MOS/KG (273-304); Potassium 3.6 MMOL/L (3.5-5.1)
[2018-02-03] MEDS: METOPROLOL TARTRATE 5 MG/5 ML VIAL IV PRN ×2 (06:47)
[2018-02-03] MEDS: LISINOPRIL 2.5 MG TABLET PO SCH (08:43)
[2018-02-03] MEDS: FUROSEMIDE 40 MG/4 ML VIAL IV SCH (08:43)
[2018-02-03] MEDS: DOCUSATE SODIUM 100 MG CAPSULE PO SCH ×2 (08:43→21:10)
[2018-02-03] MEDS: ASPIRIN CHEW 81 MG TABLET PO SCH (08:44)
[2018-02-03] MEDS: METOPROLOL TARTRATE 25 MG TABLET PO SCH ×2 (08:53→21:10)
[2018-02-03] MEDS: hydrALAZINE 20 MG/1 ML VIAL IV PRN ×2 (08:56→23:35)
[2018-02-03] MEDS ORDERED: SPIRONOLACTONE 25 MG TABLET PER TUBE SCH (09:00)
[2018-02-03] MEDS: DOXYCYCLINE HYCLATE INJ 100 MG in SODIUM CHLORIDE 0.9% 100 ML IV SCH ×2 (09:00→21:05)
[2018-02-03] MEDS: NICOTINE 21 MG/24 HR PATCH TRANSDERM SCH (09:14)
[2018-02-03] MEDS: FUROSEMIDE 20 MG TABLET PO SCH (13:50)
[2018-02-03] MEDS: ACETAMINOPHEN 325 MG/10.15 ML UDCUP PO PRN ×3 (14:30→20:00)
[2018-02-03] MEDS ORDERED: GLUCAGON 1 MG VIAL IM PRN (15:31)
[2018-02-03] MEDS ORDERED: DEXTROSE 50% 25 GM/50 ML VIAL IV PRN (15:31)
[2018-02-03] MEDS ORDERED: INSULIN REGULAR 100 UNIT/ML SUBCUT SCH (18:00)
[2018-02-03] MEDS: ENOXAPARIN 40 MG/0.4 ML SYRINGE SUBCUT SCH (21:10)
[2018-02-03] MEDS: PANTOPRAZOLE 40 MG VIAL IV SCH (21:11)
[2018-02-04] MEDS: ALBUTEROL/IPRATROPIUM 3 ML NEB RESP TX SCH ×4 (00:26→19:35)
[2018-02-04 05:41] LABS: Calcium 8.5 MG/DL (8.5-10.1); Osmolality,Calculated 291.4 MOS/KG (273-304); Potassium 3.3 MMOL/L (3.5-5.1)
[2018-02-04] MEDS: LEVOTHYROXINE 50 MCG TABLET PO SCH (05:49)
[2018-02-04] MEDS: FUROSEMIDE 20 MG TABLET PO SCH ×2 (05:49→15:03)
[2018-02-04 06:22] LABS: Prealbumin 15.5 MG/DL (20-40)
[2018-02-04] MEDS: ASPIRIN CHEW 81 MG TABLET PO SCH (09:39)
[2018-02-04] MEDS: DOCUSATE SODIUM 100 MG CAPSULE PO SCH (09:39)
[2018-02-04] MEDS: LISINOPRIL 2.5 MG TABLET PO SCH (09:39)
[2018-02-04] MEDS: METOPROLOL TARTRATE 25 MG TABLET PO SCH ×2 (09:39→21:22)
[2018-02-04] MEDS: NICOTINE 21 MG/24 HR PATCH TRANSDERM SCH (09:40)
[2018-02-04] MEDS: DOXYCYCLINE HYCLATE INJ 100 MG in SODIUM CHLORIDE 0.9% 100 ML IV SCH ×2 (09:40→21:23)
[2018-02-04] MEDS: methylPREDNISolone SOD SUC 40 MG/1 ML VIAL IV SCH ×2 (09:40→21:22)
[2018-02-04] MEDS ORDERED: ENALAPRIL 2.5 MG/2 ML VIAL IV PRN (14:03)
[2018-02-04] MEDS: amLODIPine 10 MG TABLET PO SCH (15:03)
[2018-02-04] MEDS: PANTOPRAZOLE 40 MG VIAL IV SCH (21:22)
[2018-02-04] MEDS: DOCUSATE SODIUM 100 MG/10 ML UDCUP PO SCH (21:22)
[2018-02-04] MEDS: ENOXAPARIN 40 MG/0.4 ML SYRINGE SUBCUT SCH (21:22)
[2018-02-04] MEDS: oxyCODONE/ACETAMINOPHEN 5-325 MG TABLET PO PRN (22:35)
[2018-02-05] MEDS: ALBUTEROL/IPRATROPIUM 3 ML NEB RESP TX SCH ×4 (00:37→19:34)
[2018-02-05 05:19] LABS: Basophils % 0.1 % (0.0-0.8); Eosinophils % 0.1 % (0.00-10.9); Hematocrit 38.9 VOL% (35.7-47.0); Hemoglobin 12.2 GM/DL (12.0-16.0); Immature Granulocytes % 1.1 %; Immature Granulocytes Absolute 0.13 #; Lymphocytes % 16.4 % (21.3-54.2); Mean Corpuscular HGB Conc 31.4 GM/DL (32-36); Mean Corpuscular Hemoglobin 28 PG (27-34); Mean Corpuscular Volume 87.6 FL (87-102); Monocytes # 0.8 10*3/uL (0.11-0.8); Monocytes % 6.4 % (1.7-12.7); Neutrophils # 9.3 10*3/uL (1.4-7.4); Neutrophils % 75.9 % (38.7-73.9); Platelet Count 434 T/CUMM (130-400); Red Blood Count 4.44 MC/CUMM (3.8-5.5); Red Cell Distribution Width 16.8 % (9.3-17.3); White Blood Count 12.3 T/CUMM (4-12)
[2018-02-05 05:33] LABS: Osmolality,Calculated 291.3 MOS/KG (273-304); Potassium 3.1 MMOL/L (3.5-5.1)
[2018-02-05] MEDS: LEVOTHYROXINE 50 MCG TABLET PO SCH (05:48)
[2018-02-05] MEDS: FUROSEMIDE 20 MG TABLET PO SCH ×2 (05:48→13:19)
[2018-02-05] MEDS: ASPIRIN CHEW 81 MG TABLET PO SCH (09:18)
[2018-02-05] MEDS: DOCUSATE SODIUM 100 MG/10 ML UDCUP PO SCH ×2 (09:18→20:32)
[2018-02-05] MEDS: LISINOPRIL 10 MG TABLET PO SCH (09:19)
[2018-02-05] MEDS: amLODIPine 10 MG TABLET PO SCH (09:19)
[2018-02-05] MEDS: METOPROLOL TARTRATE 25 MG TABLET PO SCH ×2 (09:19→20:32)
[2018-02-05] MEDS: POTASSIUM CHLORIDE 20 MEQ TABLET PO SCH ×4 (09:19→20:32)
[2018-02-05] MEDS: PANTOPRAZOLE 40 MG TABLET PO SCH (09:22)
[2018-02-05] MEDS: methylPREDNISolone SOD SUC 40 MG/1 ML VIAL IV SCH ×3 (09:35→20:33)
[2018-02-05] MEDS: DOXYCYCLINE HYCLATE INJ 100 MG in SODIUM CHLORIDE 0.9% 100 ML IV SCH ×2 (09:38→20:32)
[2018-02-05] MEDS: NICOTINE 21 MG/24 HR PATCH TRANSDERM SCH (09:38)
[2018-02-05] MEDS: oxyCODONE/ACETAMINOPHEN 5-325 MG TABLET PO PRN ×2 (10:25→21:32)
[2018-02-05] MEDS: ENOXAPARIN 40 MG/0.4 ML SYRINGE SUBCUT SCH (20:32)
[2018-02-06] MEDS: ALBUTEROL/IPRATROPIUM 3 ML NEB RESP TX SCH ×4 (00:19→19:38)
[2018-02-06 06:12] LABS: Calcium 8.2 MG/DL (8.5-10.1); Osmolality,Calculated 294.1 MOS/KG (273-304); Potassium 4.9 MMOL/L (3.5-5.1)
[2018-02-06] MEDS: FUROSEMIDE 20 MG TABLET PO SCH (06:18)
[2018-02-06] MEDS: LEVOTHYROXINE 50 MCG TABLET PO SCH (06:18)
[2018-02-06] MEDS: METOPROLOL TARTRATE 25 MG TABLET PO SCH ×2 (08:05→22:00)
[2018-02-06] MEDS: amLODIPine 10 MG TABLET PO SCH (08:05)
[2018-02-06] MEDS: PANTOPRAZOLE 40 MG TABLET PO SCH (08:05)
[2018-02-06] MEDS: LISINOPRIL 10 MG TABLET PO SCH (08:05)
[2018-02-06] MEDS: DOCUSATE SODIUM 100 MG/10 ML UDCUP PO SCH ×2 (08:05→22:00)
[2018-02-06] MEDS: NICOTINE 21 MG/24 HR PATCH TRANSDERM SCH (08:06)
[2018-02-06] MEDS: ASPIRIN CHEW 81 MG TABLET PO SCH (08:06)
[2018-02-06] MEDS: methylPREDNISolone SOD SUC 40 MG/1 ML VIAL IV SCH (08:07)
[2018-02-06] MEDS: DOXYCYCLINE HYCLATE INJ 100 MG in SODIUM CHLORIDE 0.9% 100 ML IV SCH ×2 (08:09→21:00)
[2018-02-06] MEDS: cloNIDine 0.1 MG TABLET PO SCH ×2 (14:03→22:00)
[2018-02-06] MEDS: ACETAMINOPHEN 325 MG/10.15 ML UDCUP PO PRN (17:49)
[2018-02-06] MEDS: ENOXAPARIN 40 MG/0.4 ML SYRINGE SUBCUT SCH (22:00)
[2018-02-07] MEDS: ALBUTEROL/IPRATROPIUM 3 ML NEB RESP TX SCH ×4 (00:20→20:21)
[2018-02-07] MEDS: LEVOTHYROXINE 50 MCG TABLET PO SCH (06:03)
[2018-02-07 06:25] LABS: Prealbumin 20.7 MG/DL (20-40)
[2018-02-07 06:33] LABS: Osmolality,Calculated 286.4 MOS/KG (273-304); Potassium 4.3 MMOL/L (3.5-5.1)
[2018-02-07] MEDS: METOPROLOL TARTRATE 25 MG TABLET PO SCH ×2 (08:07→22:18)
[2018-02-07] MEDS: ASPIRIN CHEW 81 MG TABLET PO SCH (08:07)
[2018-02-07] MEDS: cloNIDine 0.1 MG TABLET PO SCH (08:07)
[2018-02-07] MEDS: DOCUSATE SODIUM 100 MG/10 ML UDCUP PO SCH ×2 (08:07→21:54)
[2018-02-07] MEDS: amLODIPine 10 MG TABLET PO SCH (08:07)
[2018-02-07] MEDS: LISINOPRIL 10 MG TABLET PO SCH (08:07)
[2018-02-07] MEDS: PANTOPRAZOLE 40 MG TABLET PO SCH (08:07)
[2018-02-07] MEDS: methylPREDNISolone SOD SUC 40 MG/1 ML VIAL IV SCH (08:08)
[2018-02-07] MEDS: DOXYCYCLINE HYCLATE INJ 100 MG in SODIUM CHLORIDE 0.9% 100 ML IV SCH ×2 (08:08→22:19)
[2018-02-07] MEDS: FUROSEMIDE 20 MG TABLET PO SCH (08:08)
[2018-02-07] MEDS: NICOTINE 21 MG/24 HR PATCH TRANSDERM SCH (08:08)
[2018-02-07] MEDS: ACETAMINOPHEN 325 MG/10.15 ML UDCUP PO PRN (09:59)
[2018-02-07] MEDS: ENOXAPARIN 40 MG/0.4 ML SYRINGE SUBCUT SCH (21:54)
[2018-02-08] MEDS: ALBUTEROL/IPRATROPIUM 3 ML NEB RESP TX SCH ×4 (01:17→20:02)
[2018-02-08 02:34] LABS: Calcium 8.1 MG/DL (8.5-10.1); Osmolality,Calculated 281.8 MOS/KG (273-304); Potassium 4.2 MMOL/L (3.5-5.1)
[2018-02-08] MEDS: LEVOTHYROXINE 50 MCG TABLET PO SCH (06:41)
[2018-02-08] MEDS: DOCUSATE SODIUM 100 MG/10 ML UDCUP PO SCH ×2 (08:36→21:04)
[2018-02-08] MEDS: methylPREDNISolone SOD SUC 40 MG/1 ML VIAL IV SCH (08:36)
[2018-02-08] MEDS: NICOTINE 21 MG/24 HR PATCH TRANSDERM SCH (08:36)
[2018-02-08] MEDS: METOPROLOL TARTRATE 25 MG TABLET PO SCH ×2 (08:37→21:15)
[2018-02-08] MEDS: LISINOPRIL 5 MG TABLET PO SCH (08:37)
[2018-02-08] MEDS: amLODIPine 10 MG TABLET PO SCH (08:37)
[2018-02-08] MEDS: FUROSEMIDE 20 MG TABLET PO SCH (08:37)
[2018-02-08] MEDS: DOXYCYCLINE HYCLATE INJ 100 MG in SODIUM CHLORIDE 0.9% 100 ML IV SCH ×2 (08:38→21:10)
[2018-02-08] MEDS: PANTOPRAZOLE 40 MG TABLET PO SCH (08:38)
[2018-02-08] MEDS: ASPIRIN CHEW 81 MG TABLET PO SCH (08:38)
[2018-02-08] MEDS ORDERED: cloNIDine 0.1 MG TABLET PO SCH (09:00)
[2018-02-08] MEDS: ENOXAPARIN 40 MG/0.4 ML SYRINGE SUBCUT SCH (21:04)
[2018-02-08] MEDS: cloNIDine 0.1 MG TABLET PO SCH (21:05)
[2018-02-08] MEDS: METOPROLOL TARTRATE 5 MG/5 ML VIAL IV PRN (21:05)
[2018-02-09] MEDS: ALBUTEROL/IPRATROPIUM 3 ML NEB RESP TX SCH ×4 (00:20→19:14)
[2018-02-09] MEDS: LEVOTHYROXINE 50 MCG TABLET PO SCH (05:31)
[2018-02-09 06:48] LABS: Basophils % 0.1 % (0.0-0.8); Eosinophils # 0.1 10*3/uL (0.0-0.87); Eosinophils % 0.5 % (0.00-10.9); Hematocrit 37.2 VOL% (35.7-47.0); Hemoglobin 11.3 GM/DL (12.0-16.0); Immature Granulocytes % 1.2 %; Immature Granulocytes Absolute 0.15 #; Lymphocytes # 2.2 10*3/uL (1.4-4.0); Lymphocytes % 17.4 % (21.3-54.2); Mean Corpuscular HGB Conc 30.4 GM/DL (32-36); Mean Corpuscular Hemoglobin 27 PG (27-34); Mean Corpuscular Volume 88.8 FL (87-102); Mean Platelet Volume 11.1 FL (9.6-12.0); Monocytes % 7.9 % (1.7-12.7); Neutrophils # 9.3 10*3/uL (1.4-7.4); Neutrophils % 72.9 % (38.7-73.9); Platelet Count 423 T/CUMM (130-400); Red Blood Count 4.19 MC/CUMM (3.8-5.5); Red Cell Distribution Width 16.6 % (9.3-17.3); White Blood Count 12.8 T/CUMM (4-12)
[2018-02-09 07:16] LABS: Calcium 8.4 MG/DL (8.5-10.1); Osmolality,Calculated 280.7 MOS/KG (273-304); Potassium 3.9 MMOL/L (3.5-5.1)
[2018-02-09] MEDS ORDERED: MAGNESIUM HYDROXIDE SUSP 30 ML UDCUP PO PRN (07:45)
[2018-02-09] MEDS: DOCUSATE SODIUM 100 MG/10 ML UDCUP PO SCH ×2 (09:31→21:49)
[2018-02-09] MEDS: PANTOPRAZOLE 40 MG TABLET PO SCH (09:31)
[2018-02-09] MEDS: LISINOPRIL 5 MG TABLET PO SCH (09:31)
[2018-02-09] MEDS: ASPIRIN CHEW 81 MG TABLET PO SCH (09:32)
[2018-02-09] MEDS: METOPROLOL TARTRATE 25 MG TABLET PO SCH ×2 (09:32→21:48)
[2018-02-09] MEDS: amLODIPine 10 MG TABLET PO SCH (09:32)
[2018-02-09] MEDS: cloNIDine 0.1 MG TABLET PO SCH ×2 (09:32→21:49)
[2018-02-09] MEDS: predniSONE 20 MG TABLET PO SCH (09:32)
[2018-02-09] MEDS: FUROSEMIDE 20 MG TABLET PO SCH (09:33)
[2018-02-09] MEDS: NICOTINE 21 MG/24 HR PATCH TRANSDERM SCH (09:33)
[2018-02-09] MEDS: DOXYCYCLINE HYCLATE INJ 100 MG in SODIUM CHLORIDE 0.9% 100 ML IV SCH ×2 (12:13→21:48)
[2018-02-09] MEDS: ENOXAPARIN 40 MG/0.4 ML SYRINGE SUBCUT SCH (21:49)
[2018-02-10] MEDS: ALBUTEROL/IPRATROPIUM 3 ML NEB RESP TX SCH ×4 (00:32→20:13)
[2018-02-10] MEDS: LEVOTHYROXINE 50 MCG TABLET PO SCH (06:03)
[2018-02-10 06:36] LABS: Basophils % 0.3 % (0.0-0.8); Eosinophils # 0.1 10*3/uL (0.0-0.87); Eosinophils % 0.8 % (0.00-10.9); Hemoglobin 12.6 GM/DL (12.0-16.0); Immature Granulocytes % 1.1 %; Immature Granulocytes Absolute 0.12 #; Lymphocytes # 2.2 10*3/uL (1.4-4.0); Mean Corpuscular HGB Conc 31.5 GM/DL (32-36); Mean Corpuscular Hemoglobin 27 PG (27-34); Mean Corpuscular Volume 86.2 FL (87-102); Mean Platelet Volume 11.1 FL (9.6-12.0); Monocytes # 0.9 10*3/uL (0.11-0.8); Monocytes % 8.5 % (1.7-12.7); Neutrophils # 7.5 10*3/uL (1.4-7.4); Neutrophils % 69.3 % (38.7-73.9); Platelet Count 453 T/CUMM (130-400); Red Blood Count 4.64 MC/CUMM (3.8-5.5); Red Cell Distribution Width 16.7 % (9.3-17.3); White Blood Count 10.9 T/CUMM (4-12)
[2018-02-10 07:06] LABS: Calcium 8.5 MG/DL (8.5-10.1); Osmolality,Calculated 280.7 MOS/KG (273-304); Potassium 4.3 MMOL/L (3.5-5.1)
[2018-02-10] MEDS: DOCUSATE SODIUM 100 MG/10 ML UDCUP PO SCH ×2 (10:00→21:17)
[2018-02-10] MEDS: amLODIPine 10 MG TABLET PO SCH (10:01)
[2018-02-10] MEDS: ASPIRIN CHEW 81 MG TABLET PO SCH (10:01)
[2018-02-10] MEDS: DOXYCYCLINE HYCLATE INJ 100 MG in SODIUM CHLORIDE 0.9% 100 ML IV SCH ×2 (10:01→21:18)
[2018-02-10] MEDS: cloNIDine 0.1 MG TABLET PO SCH ×2 (10:01→21:17)
[2018-02-10] MEDS: NICOTINE 21 MG/24 HR PATCH TRANSDERM SCH (10:01)
[2018-02-10] MEDS: predniSONE 20 MG TABLET PO SCH (10:01)
[2018-02-10] MEDS: LISINOPRIL 5 MG TABLET PO SCH (10:02)
[2018-02-10] MEDS: PANTOPRAZOLE 40 MG TABLET PO SCH (10:02)
[2018-02-10] MEDS: METOPROLOL TARTRATE 25 MG TABLET PO SCH ×2 (10:02→21:17)
[2018-02-10] MEDS: FUROSEMIDE 20 MG TABLET PO SCH (10:02)
[2018-02-10] MEDS: oxyCODONE/ACETAMINOPHEN 5-325 MG TABLET PO PRN (16:15)
[2018-02-10] MEDS: ENOXAPARIN 40 MG/0.4 ML SYRINGE SUBCUT SCH (21:17)
[2018-02-11] MEDS: ALBUTEROL/IPRATROPIUM 3 ML NEB RESP TX SCH ×2 (02:21→07:24)
[2018-02-11] MEDS: LEVOTHYROXINE 50 MCG TABLET PO SCH (05:42)
[2018-02-11 06:14] LABS: Basophils % 0.2 % (0.0-0.8); Eosinophils # 0.1 10*3/uL (0.0-0.87); Eosinophils % 1.4 % (0.00-10.9); Hematocrit 38.6 VOL% (35.7-47.0); Hemoglobin 12.3 GM/DL (12.0-16.0); Immature Granulocytes Absolute 0.16 #; Lymphocytes # 2.2 10*3/uL (1.4-4.0); Lymphocytes % 27.2 % (21.3-54.2); Mean Corpuscular HGB Conc 31.9 GM/DL (32-36); Mean Corpuscular Hemoglobin 28 PG (27-34); Mean Corpuscular Volume 86.5 FL (87-102); Monocytes # 0.7 10*3/uL (0.11-0.8); Monocytes % 8.9 % (1.7-12.7); Neutrophils # 4.9 10*3/uL (1.4-7.4); Neutrophils % 60.3 % (38.7-73.9); Platelet Count 460 T/CUMM (130-400); Red Blood Count 4.46 MC/CUMM (3.8-5.5); Red Cell Distribution Width 16.5 % (9.3-17.3); White Blood Count 8.1 T/CUMM (4-12)
[2018-02-11 06:34] LABS: Calcium 8.5 MG/DL (8.5-10.1); Osmolality,Calculated 277.8 MOS/KG (273-304)
[2018-02-11 06:38] LABS: Prealbumin 29.5 MG/DL (20-40)
[2018-02-11] MEDS: cloNIDine 0.1 MG TABLET PO SCH (10:38)
[2018-02-11] MEDS: PANTOPRAZOLE 40 MG TABLET PO SCH (10:38)
[2018-02-11] MEDS: predniSONE 20 MG TABLET PO SCH (10:38)
[2018-02-11] MEDS: DOCUSATE SODIUM 100 MG/10 ML UDCUP PO SCH (10:38)
[2018-02-11] MEDS: LISINOPRIL 5 MG TABLET PO SCH (10:38)
[2018-02-11] MEDS: FUROSEMIDE 20 MG TABLET PO SCH (10:38)
[2018-02-11] MEDS: METOPROLOL TARTRATE 25 MG TABLET PO SCH (10:38)
[2018-02-11] MEDS: amLODIPine 10 MG TABLET PO SCH (10:38)
[2018-02-11] MEDS: ASPIRIN CHEW 81 MG TABLET PO SCH (10:39)
[2018-02-11] MEDS: NICOTINE 21 MG/24 HR PATCH TRANSDERM SCH (10:39)
[2018-02-11] MEDS: DOXYCYCLINE HYCLATE INJ 100 MG in SODIUM CHLORIDE 0.9% 100 ML IV SCH (10:47)
[2018-02-11 13:23] VITALS: BP 132/72
== END 2018-02-11 13:00 | DRG 291 ==
LOC: N.CC 18:45 → SUATTDRO 18:45 → N.5E 02-08 17:09
PROVIDERS: ADMIT Internal Medicine Infectious Disease